=== PATIENT | female | born 1955 | race Caucasian/White ===

== ENCOUNTER → 2022-10-17 15:40 | Outpatient (BNVA) | payer MEDICARE, OTHER, SELFPAY | PROVIDERS: PCP Family Medicine; Referring Provider Family Medicine; Visit Provider Specialist | DX: G56.03 Carpal tunnel syndrome, bilateral upper limbs (principal) | CPT/HCPCS: 95910; 95912 ==

== ENCOUNTER 2023-02-28 14:09 | Outpatient (CLI) | payer MEDICARE, OTHER, SELFPAY ==
--- NOTE | 2023-02-28 14:17 | XR_ITS ---
WS: [id number] SCREENING DEXA SCAN [facility] CLINICAL INFORMATION: OSTEOPOROSIS SCREENING COMPARISON: None. FINDINGS: The L1-L4 bone mineral density measures 1.041 g/cm2. This corresponds to a T score score of -1.2 and Z score of -0.3. Left femoral neck bone mineral density measures 0.830 g/cm2. This corresponds to a T score of -1.4 an d Z score of -0.6. Right femoral neck bone mineral density measures 0.835 g/cm2. This corresponds to a T score -1.4of an d Z score of -0.6. Mean femoral neck bone mineral density measures 0.832 g/cm2. This corresponds to a T score of -1.4 an d Z score of -0.6. IMPRESSION: Osteopenia lumbar spine. Osteopenia femoral necks. Patient's FRAX calculated 10 year probability for major osteoporotic fracture is 10.6% and osteoporotic hip fracture is 1.7%.
== END 2023-02-28 14:10 | disposition home or self-care (01) ==
PROVIDERS: PCP Nurse Practitioner Family; Visit Provider Nurse Practitioner Family
DX: Z13.820 Encounter for screening for osteoporosis (principal); M85.89 Other specified disorders of bone density and structure, multiple sites
CPT/HCPCS: 77080